=== PATIENT | female | born 2000 | race Caucasian/White ===

== ENCOUNTER 2023-11-29 10:18 | Emergency (ER) | payer BC, SELFPAY ==
--- NOTE | ~2023-11-29 | US_ITS ---
EXAMINATION: US pelvic complete INDICATION: hemorrhage. Retained placental clot/hematoma. Comparison:No prior studies for comparison. TECHNIQUE: Multiple transabdominal and endovaginal sonographic images of the pelvis performed. FINDINGS: The uterus measures 9.8 x 5.8 x 8.1 cm. The endometrial complex measures 7 mm. The right ovary measures 1.1 x 3.7 x 1.7 cm and the left ovary measures 3 x 3 x 2.9 cm. There are sm all follicles in each ovary. There is a left ovarian cyst measuring 2.6 cm. Normal doppler signal in both ovaries. There is free fluid in the pelvis. There is fluid in the cervix. There are no abnormal masses seen on either side. IMPRESSION: 1. Left ovarian cyst measuring 2.6 cm greatest dimension. Reviewed, dictated and finalized at location B.
[2023-11-29 10:33] VITALS: BP 121/70; PULSE 94; RESP 17; TEMP 36.5; O2SAT 100
[2023-11-29 11:01] LABS: Basophils Percent Auto 0.7 % (0.2-1.2); Eosinophils Absolute Auto 0.2 K/mm3 (0-0.3); Eosinophils Percent Auto 4.2 % (0-4.4); Hematocrit 40.7 % (37.0-47.0); Hemoglobin 13.1 g/dL (12.0-15.0); Immature Granulocyte Absolute 0.05 K/mm3 (0.00-0.031); Immature Granulocyte Percent A 0.9 % (0-0.5); Lymphocytes Percent Auto 34.5 % (18.3-44.2); Mean Corpuscular HGB Conc 32.2 g/dl (32-36); Mean Corpuscular Hemoglobin 29.7 pg (26-34); Mean Corpuscular Volume 92.3 fl (80-100); Mean Platelet Volume 9.5 fl (7.4-10.4); Monocytes Absolute Auto 0.3 K/mm3 (0.1-0.6); Monocytes Percent Auto 5.6 % (2.6-8.5); Neutrophils Percent Auto 54.1 % (45.5-73.1); Platelet Count Result 252 k/mm3 (150-375); Red Blood Count 4.41 M/mm3 (4.2-5.4); Red Cell Distribution Width 13.2 % (11.5-14.5); White Blood Count 5.5 K/mm3 (4.5-10.0)
[2023-11-29 11:13] LABS: Alanine Aminotransferase 40 U/L (6-35); Albumin Level 4.1 g/dL (3.5-5.1); Alkaline Phosphatase 145 U/L (38-126); Anion Gap 8 mmol/L (4-12); Aspartate Amino Transferase 39 U/L (14-36); Bilirubin,Total 0.5 mg/dL (0.2-1.3); Blood Urea Nitrogen 11 mg/dL (7-17); Calcium 8.8 mg/dL (8.4-10.2); Carbon Dioxide 24 mmol/L (22-30); Chloride 106 mmol/L (98-107); Estimated CRCL calculation 112 ml/min; Estimated Glomerular Filt Rate > 60; Glucose 99 mg/dL (65-110); Potassium 4.1 mmol/L (3.4-5.0); Sodium 138 mmol/L (137-145)
[2023-11-29 11:20] LABS: INR 1.1; Prothrombin Time 14.5 Seconds (11.1-14.7)
[2023-11-29 11:21] LABS: Partial Thromboplastin Time 26.1 Seconds (22.3-36.8)
[2023-11-29 12:34] LABS: Bacteria Urine Rare /hpf; Non Pathogenic Casts 0-2; RBC Urine >100 /hpf (0-2); Squamous Epithelial Cell Urine None Seen /hpf (Few)
[2023-11-29 12:43] LABS: Appearance Urine Cloudy (Clear); Bilirubin Urine 1+ (Negative); Blood Urine 3+ (Negative); Color Urine Red (Yellow); Glucose Urine UA Negative (Negative); Ketones Urine Negative (Negative); Leukocyte Esterase Ur 1+ LEU/UL (Negative); Nitrate Urine Negative (Negative); Protein Urine 2+ mg/dL (Negative); Specific Grav Ur 1.007 (1.001-1.035); Urobilinogen Urine 0.2 mg/dL (<2.0); pH Urine 5.5 (5.0-9.0)
[2023-11-29 12:45] LABS: Add Urine Microscopic? YES
--- NOTE | 2023-11-29 12:45 | ED.FEMALEGU ---
HPI - Female Genitourinary General Chief complaint: Vaginal Bleeding Stated complaint: vaginal bleeding Time Seen by Provider: 11/29/23 11:33 Source: patient and family Mode of arrival: ambulatory Limitations: no limitations History of Present Illness HPI Narrative: 23 yo female who is approximately 5 weeks post from a planned section who presents with abdominal cramping and vaginal bleeding that began a few days ago. No complications during or delivery though baby has been hospitalized at [facility] since 10/27/23 (1 day old). Patient passed a large clot approximately the size of her thumb. Already had a appointment at approximately 4 weeks ; next scheduled for 6 mos post . Denies known history of anemia. No prior blood transfusions. Her ObGyn is Dr Berger and she delivered at [facility] in [place]. Pain 2/10 in severity. Prior miscarriage at 5 weeks gestational age. Patient feels like it is gushing when she stands. Had not been dizzy upon initial assessment in triage but does report some now, though also decreased PO intake and hasn't eaten today so feels this might be contributing. Does feel short of breath. No fevers. Related Data Allergies Allergy/AdvReac Type Severity Reaction Status Date / Time No Known Allergies Allergy Verified 11/29/23 10:36 PMFSH Past Medical History Medical History (Updated 12/01/23 @ 09:50 by Chasity Flowers MD) History of miscarriage at 5 weeks gestational age Surgical History Surgical History (Updated 12/01/23 @ 09:52 by Chasity Flowers MD) History of section 10/26/23; Dr Berger ([facility] in [place]) Exam Narrative: GENERAL: Well-appearing, well-nourished, and in no acute distress. HEAD: Normocephalic, atraumatic. EYES: Non injected, non icteric. No conjunctival pallor. ENT: Nares clear, no rhinorrhea or epistaxis. NECK: Supple. CHEST: Speaking in full sentences. No respiratory distress. HEART: Regular rate and rhythm. . ABDOMEN: Soft, nondistended.Observed grimacing during transabdominal ultrasound assessment but Non tender to palpation and without rigidity or guarding on my exam. EXTREMITIES: Normal range of motion. No edema. SKIN: Warm, dry, no rash. NEURO: No focal deficits. Alert and oriented x3. PSYCH: Normal mood and affect. Course Vital Signs Vital signs: Vital Signs Temperature 97.7 F 11/29/23 10:33 Pulse Rate 94 11/29/23 10:33 Respiratory Rate 17 11/29/23 10:33 Blood Pressure 121/70 11/29/23 10:33 Pulse Oximetry 100 11/29/23 10:33 Oxygen Delivery Room Air 11/29/23 10:33 Temperature 97.7 F 11/29/23 10:33 Pulse Rate 98 11/29/23 14:12 Respiratory Rate 20 11/29/23 14:12 Blood Pressure 98/69 L 11/29/23 14:12 Pulse Oximetry 100 11/29/23 14:12 Oxygen Delivery Room Air 11/29/23 10:33 MDM - Female Genitourinary MDM Narrative Medical decision making narrative: 23yo female presents with vaginal bleeding that started a few days ago. In the ED she is afebrile with VS within normal limits. Late post- hemorrhage (between 24 hours and 6 weeks post ), differential diagnoses include endometritis, retained placental parts or delayed placental site involution. Will obtain CBC, coags, type and screen, ultrasound (looking for retained placental tissue versus intrauterine clot versus occult hematoma). Not anemic. I did discuss with the ObGYn ken for Dr Berger who recommended providing reassurance, strict emergency department return precautions. She stated that this bleeding was likely normal and insurance healthcare representative of placental involution. I did inform her that I had not yet performed a pelvic exam but she felt this could likely be deferred based on the lab and imaging. Informed patient. Advised patient on ED return precautions, pain management (Rx provided); advised her to return to same ED if possible as this would allow co
[2023-11-29 14:03] LABS: SPREG INTERNAL CONTROL Positive; Serum Qual hCG Negative
[2023-11-29] MEDS: HYDROcodone/acetaminophen (*CRX) 5-325 MG TABLET 1 TAB PO (14:10)
[2023-11-29 14:12] VITALS: BP 98/69; PULSE 98; RESP 20; O2SAT 100
== END 2023-11-29 14:32 | disposition home or self-care (01) ==
PROVIDERS: Emergency Provider Student in an Organized Health Care Education/Training Program
DX: R74.01 Elevation of levels of liver transaminase levels (principal); N83.202 Unspecified ovarian cyst, left side; N93.9 Abnormal uterine and vaginal bleeding, unspecified
CPT/HCPCS: 36415; 76856; 80053; 81001; 84703; 85025; 85610; 85730; 86850; 86900; 86901; 87086; 96365; 99284; A9270; J0696